=== PATIENT | female | born 1990 | race Two or more races ===

== ENCOUNTER 2020-12-05 18:47 | Emergency (ER) | payer MEDICAID, OTHER ==
[~2020-12-05] VITALS: Ht 160 cm; Wt 63.5 kg
[2020-12-05 18:49] VITALS: BP 110/62
== END 2020-12-05 23:28 | disposition left against medical advice (07) ==
LOC: ER 18:47
DX: F41.9 Anxiety disorder, unspecified (principal); Z53.21 Procedure and treatment not carried out due to patient leaving prior to being seen by health care provider